=== PATIENT | male | born 1950 | race Caucasian/White ===

== ENCOUNTER 2024-07-06 18:41 | Emergency (ER) | payer MEDICARE ==
[2024-07-06] VITALS (9 sets, daily range): BP systolic 131–150; BP diastolic 91–103
[2024-07-06] MEDS ORDERED: GABAPENTIN 300 MG/CAP PO ONE (19:25)
[2024-07-06] MEDS ORDERED: METOPROLOL TARTRATE 50 MG/TAB PO ONE (19:25)
[2024-07-06] MEDS ORDERED: NEOMYCIN-BACITRACIN-POLYMYXIN 0.5 GM/PAK PAK TOP ONE (19:25)
[2024-07-06] MEDS ORDERED: oxyCODONE HCL 15 MG/TAB PO ONE (19:25)
[2024-07-06] MEDS ORDERED: METOPROLOL TARTRATE 5 MG/5 ML VIAL IV ONE (19:25)
[2024-07-06 19:41] LABS: BASO% 0.7 % (0-3); HEMATOCRIT 48.9 % (39.0-50.0); HEMOGLOBIN 15.8 g/dl (14.0-18.0); IMMATURE GRANULOCYTES 0.3 % (0.0-5.0); MEAN CELL VOLUME 85.8 fL CALC (80.0-100.0); MEAN CORPUSCULAR HGB 27.7 pG CALC (26.0-32.0); MEAN CORPUSCULAR HGB CONC 32.3 g/dL CAL (32.0-36.0); MONO% 8.6 % (2-13); NEUT# 4.51 thou/uL (1.82-7.42); NEUT% 65.4 % (42-76); RED BLOOD COUNT 5.7 mill/uL (4.70-6.10); RED CELL DISTRI WIDTH 14.6 % (11.5-15.5)
[2024-07-06 19:59] LABS: CREATININE 1.1 mg/dL (0.7-1.3); MAGNESIUM 1.9 mg/dL (1.6-2.3); POTASSIUM 4.4 mmol/l (3.5-5.1)
[2024-07-06] MEDS ORDERED: INSULIN REGULAR (HUMAN) 100 UNIT/ML INJ SC ONE (20:05)
[2024-07-06] MEDS ORDERED: OXYCODONE30 MG PO (20:40)
[2024-07-06] MEDS ORDERED: TRESIBA100 UNIT/M SC (20:59)
== END 2024-07-06 20:47 | disposition home or self-care (01) ==
LOC: ED 18:41
PROVIDERS: Family Medicine
DX: E11.42 Type 2 diabetes mellitus with diabetic polyneuropathy (principal); E11.65 Type 2 diabetes mellitus with hyperglycemia; I48.91 Unspecified atrial fibrillation; Z79.4 Long term (current) use of insulin; T50.996A Underdosing of other drugs, medicaments and biological substances, initial encounter; Z91.128 Patient's intentional underdosing of medication regimen for other reason

== ENCOUNTER 2024-11-13 18:02 | Emergency (ER) | payer MEDICARE ==
[2024-11-13] VITALS (10 sets, daily range): BP systolic 102–134; BP diastolic 67–89
[~2024-11-13 18:02] MED LIST: OXYCODONE30 MG PO; TRESIBA100 UNIT/M SC
[2024-11-13] MEDS ORDERED: NALOXONE HCL 0.4 MG/ML 1ML AMP IV ONE (18:10)
[2024-11-13 18:18] LABS: BASO% 0.4 % (0-3); EOS% 3.9 % (0-8); HEMATOCRIT 50.5 % (39.0-50.0); HEMOGLOBIN 15.3 g/dl (14.0-18.0); IMMATURE GRANULOCYTES 0.3 % (0.0-5.0); LYMPH% 26.8 % (15-41); MEAN CELL VOLUME 91.7 fL CALC (80.0-100.0); MEAN CORPUSCULAR HGB 27.8 pG CALC (26.0-32.0); MEAN CORPUSCULAR HGB CONC 30.3 g/dL CAL (32.0-36.0); MONO% 11.8 % (2-13); NEUT# 4.06 thou/uL (1.82-7.42); NEUT% 56.8 % (42-76); RED BLOOD COUNT 5.51 mill/uL (4.70-6.10); RED CELL DISTRI WIDTH 16.4 % (11.5-15.5)
[2024-11-13] MEDS ORDERED: dilTIAZem HCL 50 MG/10 ML SDV IV ONE (18:35)
[2024-11-13 18:36] LABS: ALBUMIN 4.5 g/dL (3.2-5.0); BILIRUBIN, TOTAL 2.5 mg/dL (0.2-1.3); CREATININE 1.5 mg/dL (0.7-1.3); POTASSIUM 4.1 mmol/l (3.5-5.1); TOTAL PROTEIN 8.3 g/dL (6.3-8.2)
[2024-11-13] MEDS ORDERED: SODIUM CHLORIDE 0.9% 1,000 ML IV ONE (18:45)
[2024-11-13] MEDS ORDERED: FUROSEMIDE 40 MG/4 ML SDV IV ONE (19:10)
[2024-11-13] MEDS ORDERED: METOPROLOL TARTRATE 5 MG/5 ML VIAL IV ONE (19:10)
[2024-11-13] MEDS ORDERED: METOPROLOL TARTRATE 25 MG/TAB PO ONE (19:10)
[2024-11-13 20:13] LABS: URINE BILIRUBIN - DIPSTICK Negative (NEGATIVE); URINE BLOOD DIPSTICK Negative (NEGATIVE); URINE COLOR Yellow; URINE GLUCOSE - DIPSTICK Negative (NEGATIVE); URINE KETONE Negative (NEGATIVE); URINE LEUK ESTERASE Negative (NEGATIVE); URINE NITRITE - DIPSTICK Negative (Negative); URINE PH 5.5 (4.5-8.0); URINE PROTEIN - DIPSTICK Negative (NEG-TRACE)
[2024-11-13] MEDS ORDERED: OMEPRAZOLE DR40 MG (20:23)
[2024-11-13] MEDS ORDERED: ALDACTONE25 MG PO (20:23)
[2024-11-13] MEDS ORDERED: TOPROL XL100 MG PO (20:24)
[2024-11-13] MEDS ORDERED: ELIQUIS5 MG PO (20:25)
[2024-11-13] MEDS ORDERED: ATORVASTATIN CA40 MG PO (20:26)
[2024-11-13] MEDS ORDERED: METOLAZONE2.5 MG PO (20:27)
== END 2024-11-13 20:37 | disposition home or self-care (01) ==
LOC: ED 18:02
PROVIDERS: Family Medicine
DX: T40.2X1A Poisoning by other opioids, accidental (unintentional), initial encounter (principal); E87.20 Acidosis, unspecified; I50.9 Heart failure, unspecified; I48.91 Unspecified atrial fibrillation; E11.40 Type 2 diabetes mellitus with diabetic neuropathy, unspecified; E66.9 Obesity, unspecified; Z79.891 Long term (current) use of opiate analgesic; Z79.4 Long term (current) use of insulin
CPT/HCPCS: J1940

== ENCOUNTER 2025-01-03 10:06 | Emergency (ER) | payer MEDICARE ==
[~2025-01-03 10:06] MED LIST changes: +ALDACTONE25 MG PO; +ATORVASTATIN CA40 MG PO; +ELIQUIS5 MG PO; +METOLAZONE2.5 MG PO; +OMEPRAZOLE DR40 MG; +TOPROL XL100 MG PO
== END 2025-01-03 15:30 | disposition left against medical advice (07) ==
LOC: ED 10:06 → LWOBS 10:47
DX: Z53.21 Procedure and treatment not carried out due to patient leaving prior to being seen by health care provider (principal)

== ENCOUNTER 2025-01-16 16:50 | Emergency (ER) | payer OTHER, MEDICARE ==
[~2025-01-16] VITALS: Ht 177.8 cm; Wt 100.0 kg
[2025-01-16] VITALS (23 sets, daily range): BP systolic 107–163; BP diastolic 66–106
[~2025-01-16 16:50] MED LIST changes: +ATORVASTATIN CA20 MG PO; -ATORVASTATIN CA40 MG PO; -OMEPRAZOLE DR40 MG; +OMEPRAZOLE DR40 MG PO; +TRESIBA FL200 UNIT/M SC; -TRESIBA100 UNIT/M SC
[2025-01-16] MEDS ORDERED: ADENOSINE 6MG (3 MG/ML) SYR IV ONE ×2 (16:55→17:00)
[2025-01-16] MEDS ORDERED: SODIUM CHLORIDE 0.9% 1,000 ML IV ONE (17:00)
[2025-01-16] MEDS ORDERED: METOPROLOL TARTRATE 5 MG/5 ML VIAL IV ONE ×3 (17:05→21:45)
[2025-01-16 17:24] LABS: BASO% 0.6 % (0-3); EOS% 0.6 % (0-8); HEMATOCRIT 48.5 % (39.0-50.0); HEMOGLOBIN 15.7 g/dl (14.0-18.0); LYMPH% 24.1 % (15-41); MEAN CELL VOLUME 88.5 fL CALC (80.0-100.0); MEAN CORPUSCULAR HGB 28.6 pG CALC (26.0-32.0); MEAN CORPUSCULAR HGB CONC 32.4 g/dL CAL (32.0-36.0); MONO% 15.1 % (2-13); NEUT# 2.84 thou/uL (1.82-7.42); NEUT% 58.6 % (42-76); RED BLOOD COUNT 5.48 mill/uL (4.70-6.10); RED CELL DISTRI WIDTH 18.6 % (11.5-15.5)
[2025-01-16] MEDS ORDERED: dilTIAZem HCL 50 MG/10 ML SDV IV ONE ×2 (17:25→20:45)
[2025-01-16 17:30] LABS: ALKALINE PHOSPHATASE 91 u/l (38-126); ANION GAP 17 (6-22 (CALC)); BILIRUBIN, TOTAL 2.3 mg/dL (0.2-1.3); BUN 28 mg/dL (8-23); BUN/CREATININE RATIO 23 (12-20 (CALC)); CARBON DIOXIDE 25 mmol/l (22-30); CHLORIDE 97 mmol/l (95-108); CREATININE 1.2 mg/dL (0.7-1.3); ESTIMATED GFR 64 ML/MIN (>=90 (CALC)); ETHYL ALCOHOL 0 mg/dl (0-30); POTASSIUM 3.7 mmol/l (3.5-5.1); SGOT/AST 54 u/l (19-48); SODIUM 136 mmol/l (137-146); TOTAL PROTEIN 7.7 g/dL (6.3-8.2)
[2025-01-16] MEDS ORDERED: SODIUM CHLORIDE 0.9% 250 ML IV PRN (18:10)
[2025-01-16] MEDS ORDERED: DILTIAZEM HCL 125 MG in SODIUM CHLORIDE 0.9% 100 ML IV ONE (18:10)
[2025-01-16] MEDS ORDERED: MORPHINE SULFATE 4 MG/ML VIAL IV ONE (19:20)
[2025-01-16] MEDS ORDERED: ONDANSETRON HCl 4 MG/2 ML SDV IV ONE (20:45)
[2025-01-16] MEDS ORDERED: HYDROmorphone HCL 2 MG/AMP IV ONE (20:45)
[2025-01-16] MEDS ORDERED: METOPROLOL TARTRATE 50 MG/TAB PO ONE (20:45)
[2025-01-16] MEDS ORDERED: MAGNESIUM HYDROXIDE 30 ML UDC PO PRN (23:55)
[2025-01-16] MEDS ORDERED: ACETAMINOPHEN 325 MG/TAB PO PRN (23:55)
[2025-01-16] MEDS ORDERED: METOPROLOL SUCCINATE 100 MG/TAB PO SCH (23:56)
[2025-01-17] MEDS ORDERED: OXYCODONE30 MG PO (08:01)
[2025-01-17] MEDS ORDERED: TIZANIDINE2 MG PO (08:03)
[2025-01-17] MEDS ORDERED: INSULIN GLARGINE 100 UNITS/ML SC SCH (09:00)
[2025-01-17] MEDS ORDERED: APIXABAN BASE 5 MG TAB PO SCH (09:00)
[2025-01-17] MEDS ORDERED: PANTOPRAZOLE SODIUM Sesquihydr 40 MG/TAB PO SCH (09:00)
== END 2025-01-16 22:36 | disposition left against medical advice (07) | DRG 310 ==
LOC: ED 16:50 → ED-I 21:49 → ED 22:36
PROVIDERS: Family Medicine
DX: I48.20 Chronic atrial fibrillation, unspecified (principal); S20.219A Contusion of unspecified front wall of thorax, initial encounter; M54.9 Dorsalgia, unspecified; M54.2 Cervicalgia; I10 Essential (primary) hypertension; E11.40 Type 2 diabetes mellitus with diabetic neuropathy, unspecified; Z79.4 Long term (current) use of insulin; Z79.02 Long term (current) use of antithrombotics/antiplatelets; V49.50XA Passenger injured in collision with unspecified motor vehicles in traffic accident, initial encounter; T45.526A Underdosing of antithrombotic drugs, initial encounter; Z91.128 Patient's intentional underdosing of medication regimen for other reason; Z53.29 Procedure and treatment not carried out because of patient's decision for other reasons
CPT/HCPCS: J1171; J2405; Q9967

== ENCOUNTER 2025-01-17 00:55 | Observation (INO) | payer MEDICARE ==
[~2025-01-17] VITALS: Ht 177.8 cm; Wt 150.0 kg
[2025-01-17] VITALS (22 sets, daily range): BP systolic 90–147; BP diastolic 64–96
--- NOTE | 2025-01-17 01:12 | NUR ---
at bedside. good rise and fall of chest. pt states no complaints of chest or abdominal pain. No complaints of palpitations. IV access gained. Labs sent . at bedside
[2025-01-17] MEDS ORDERED: dilTIAZem HCL 50 MG/10 ML SDV IV ONE (01:20)
[2025-01-17] MEDS ORDERED: ASPIRIN 81 MG/TAB PO ONE (01:20)
[2025-01-17] MEDS ORDERED: DILTIAZEM HCL 125 MG in SODIUM CHLORIDE 0.9% 100 ML IV PRN ×2 (01:20→02:25)
[2025-01-17] MEDS ORDERED: SODIUM CHLORIDE 0.9% 250 ML IV ONE (01:20)
[2025-01-17 01:51] LABS: BILIRUBIN, TOTAL 2.5 mg/dL (0.2-1.3); CREATININE 1.1 mg/dL (0.7-1.3); MAGNESIUM 1.9 mg/dL (1.6-2.3); POTASSIUM 4.2 mmol/l (3.5-5.1); TOTAL PROTEIN 7.6 g/dL (6.3-8.2)
[2025-01-17] MEDS ORDERED: ONDANSETRON HCl 4 MG/2 ML SDV IV PRN (02:20)
[2025-01-17] MEDS ORDERED: FAMOTIDINE 10MG/ML 2ML SDV IV PRN (02:20)
[2025-01-17] MEDS ORDERED: IBUPROFEN 800 MG/TAB PO PRN (02:20)
[2025-01-17] MEDS ORDERED: ONDANSETRON 4 MG/TAB ODT PO PRN (02:20)
[2025-01-17] MEDS ORDERED: Polyethylene Glycol 3350 17 GM/PKT PO PRN (02:20)
[2025-01-17] MEDS ORDERED: ALUM & MAG HYDROX-SIMETHICONE 30 ML PO PRN (02:20)
[2025-01-17] MEDS ORDERED: SODIUM CHLORIDE 0.9% 250 ML IV PRN (02:25)
--- NOTE | 2025-01-17 02:28 | NUR ---
report given to charge. patient appears to be resting at bedside.good rise and fall of chest.
--- NOTE | 2025-01-17 02:29 | NUR ---
report given to charge nurse Lorenza DYER
--- NOTE | 2025-01-17 02:45 | NUR ---
PATIENT STARTED ON CARDIZEM.
--- NOTE | 2025-01-17 03:30 | NUR ---
PATIENT ADMITED TO ICU. PATIENT TO BE A HOLD IN ED 15.
[2025-01-17] MEDS ORDERED: SODIUM CHLORIDE 0.9% 0 ML IV ONE (03:43)
[2025-01-17] MEDS ORDERED: HYDROmorphone HCL 2 MG/AMP IV ONE (05:00)
--- NOTE | 2025-01-17 05:00 | NUR ---
PATIENT ADMITTED TO ICU. PATIENT TO STAY IN ED ROOM 15 AN ICU OVERFLOW. PATIENT CURRENTLY ON CARDIZEM AT 5MG. PATIENT REPORTS HE DOES NOT KNOW IF HE WILL LEAVE THIS AM, OR STAY. PATIENT ORIENTED TO CALL SYSTEM AND ROOM. REMAINS AT BEDSIDE.
--- NOTE | 2025-01-17 06:45 | NUR ---
REPORT GIVEN TO Sindhu HOUGH RN
[2025-01-17] MEDS ORDERED: DEXTROSE 250 ML IV PRN (07:20)
[2025-01-17] MEDS ORDERED: OXYCODONE30 MG PO (08:01)
[2025-01-17] MEDS ORDERED: TIZANIDINE2 MG PO (08:03)
[2025-01-17] MEDS ORDERED: oxyCODONE HCL 15 MG/TAB PO PRN (08:05)
--- NOTE | 2025-01-17 08:38 | NUR ---
PT REPORT RECEIVED, WENT INTO ROOM AND PT STATES I AM WANTING TO LEAVE, THE ONLY REASON I AM HERE IS THAT I COULDNT FIND A HOTEL ROOM LAST NIGHT SO I CAME BACK IN. DENIES ANY PAIN OR CHEST PAIN, STATES HE SEES A ELEVATED MOTORMAN ON A REGULAR BASIS AND AFIB IS A CHRONIC "THING" WITH HIM. STATES HE WOULD LIKE TO SEE DOCTOR THEN SIGN OUT AMA., CARDIZEM WAS DECREASED TO 2.5, WITH HEART RATE FROM 84-120'S..
[2025-01-17] MEDS ORDERED: INSULIN GLARGINE 100 UNITS/ML SC SCH (09:00)
[2025-01-17] MEDS ORDERED: PANTOPRAZOLE SODIUM Sesquihydr 40 MG/TAB PO SCH (09:00)
[2025-01-17] MEDS ORDERED: METOPROLOL SUCCINATE 100 MG/TAB PO SCH (09:00)
[2025-01-17] MEDS ORDERED: APIXABAN BASE 5 MG TAB PO SCH (09:00)
--- NOTE | 2025-01-17 10:13 | NUR ---
PT STATES HE IS WANTING TO SIGN OUT AMA, ADVISED AGAINST SIGNING AMA, HE STATES HE FEELS FINE. STATES HE IS NOT STAYING AND REQUESTING IV OUT
--- NOTE | 2025-01-17 10:18 | NUR ---
MULTIPLE ATTEMPTS MADE TO ENCOURAGE PT TO REMAIN FOR CONTINUATION OF TREATMENT. EXPLAINED TO PT ALL RISKS OF LEAVING AMA INCLUDING . DR. RODRÍGUEZ NOTIFIED. PT DISCUSSING IT AT THIS TIME WITH .
--- NOTE | 2025-01-17 10:39 | NUR ---
PT SIGNED AMA FORM AND BOTH IV'S WERE REMOVED, TOOK PT AND BY W/C TO WAITING ROOM WHERE THEY WERE GOING TO CALL A CAB
[2025-01-17] MEDS ORDERED: ADENOSINE 6MG (3 MG/ML) SYR IV ONE (12:50)
[2025-01-17] MEDS ORDERED: ATORVASTATIN CALCIUM 40 MG/TAB PO SCH (21:00)
== END 2025-01-17 10:30 | disposition left against medical advice (07) ==
LOC: ED 00:55 → ED-I 02:06 → ED 02:20 → ED-I 02:21
PROVIDERS: Internal Medicine; ADMIT Internal Medicine; ATTEND Internal Medicine
DX: I48.91 Unspecified atrial fibrillation (principal); S20.219A Contusion of unspecified front wall of thorax, initial encounter; I11.0 Hypertensive heart disease with heart failure; I50.9 Heart failure, unspecified; E11.40 Type 2 diabetes mellitus with diabetic neuropathy, unspecified; M54.9 Dorsalgia, unspecified; G89.29 Other chronic pain; V49.9XXA Car occupant (driver) (passenger) injured in unspecified traffic accident, initial encounter; Z79.4 Long term (current) use of insulin; Z79.01 Long term (current) use of anticoagulants; Z79.891 Long term (current) use of opiate analgesic
CPT/HCPCS: J1171; J1815

== ENCOUNTER 2025-01-21 13:28 | Inpatient (IN) | payer MEDICARE ==
[2025-01-21] VITALS (86 sets, daily range): BP systolic 93–164; BP diastolic 43–97
[~2025-01-21] VITALS: Ht 177.8 cm; Wt 105.1 kg
[~2025-01-21 13:28] MED LIST changes: +TIZANIDINE2 MG PO
--- NOTE | 2025-01-21 13:28 | NUR ---
PATIENT TO ER ROOM 11 VIA EMS. (SEE TRIAGE)
[2025-01-21] MEDS ORDERED: PIPERACILLIN Sodium-Tazobactam 3.375 GM in SODIUM CHLORIDE 0.9% 100 ML IV ONE (13:40)
[2025-01-21] MEDS ORDERED: FUROSEMIDE 40 MG/4 ML SDV IV ONE (13:40)
--- NOTE | 2025-01-21 13:40 | NUR ---
PT TACHYPNIC, TO BE PLACED ON BIPAP PER MD.
[2025-01-21 14:10] LABS: BASO% 0.3 % (0-3); EOS% 0.2 % (0-8); HEMATOCRIT 52.4 % (39.0-50.0); HEMOGLOBIN 16.9 g/dl (14.0-18.0); IMMATURE GRANULOCYTES 0.3 % (0.0-5.0); LYMPH% 7.3 % (15-41); MEAN CELL VOLUME 88.5 fL CALC (80.0-100.0); MEAN CORPUSCULAR HGB 28.5 pG CALC (26.0-32.0); MEAN CORPUSCULAR HGB CONC 32.3 g/dL CAL (32.0-36.0); MONO% 6.8 % (2-13); NEUT# 9.82 thou/uL (1.82-7.42); NEUT% 85.1 % (42-76); RED BLOOD COUNT 5.92 mill/uL (4.70-6.10); RED CELL DISTRI WIDTH 19.5 % (11.5-15.5)
[2025-01-21] MEDS ORDERED: NITROGLYCERIN IN D5W 250 ML IV ONE (14:20)
[2025-01-21] MEDS ORDERED: SODIUM CHLORIDE 0.9% 250 ML IV PRN ×2 (14:20→17:50)
[2025-01-21 14:21] LABS: ALBUMIN 3.9 g/dL (3.2-5.0); BILIRUBIN, TOTAL 3.1 mg/dL (0.2-1.3); CREATININE 1.2 mg/dL (0.7-1.3); MAGNESIUM 2.2 mg/dL (1.6-2.3); POTASSIUM 3.9 mmol/l (3.5-5.1); TOTAL PROTEIN 7.7 g/dL (6.3-8.2)
[2025-01-21 14:30] LABS: INTERNATIONAL NORMALIZED RATIO 1.5 RATIO (0.7-1.3)
[2025-01-21 14:40] LABS: URINE BLOOD DIPSTICK Moderate (NEGATIVE); URINE GLUCOSE - DIPSTICK 100 mg/dL (NEGATIVE); URINE KETONE 40 mg/dL (NEGATIVE); URINE LEUK ESTERASE Negative (NEGATIVE); URINE NITRITE - DIPSTICK Negative (Negative); URINE PROTEIN - DIPSTICK 100 mg/dL (NEG-TRACE)
--- NOTE | 2025-01-21 14:40 | NUR ---
NITRO DRIP STARTED
[2025-01-21 14:42] LABS: URINE COLOR Yellow
[2025-01-21 14:53] LABS: URINE HYALINE CAST FEW lpf (NONE-RARE); URINE SQUAMOUS EPITHELIAL CELL FEW EPI/hpf (0-FEW); URINE WBC 0-2 WBC/hpf (0-5)
--- NOTE | 2025-01-21 15:25 | NUR ---
1800 ML EMPTIED FROM DINERO
--- NOTE | 2025-01-21 16:04 | NUR ---
PT ON 2L NC AND RECEIVING NITRO DRIP. RESTING AT THIS TIME. VITALS STABLE
--- NOTE | 2025-01-21 17:00 | NUR ---
PT SLEEPING, VOIDED 600 ML. VITALS STABLE, ON NITRO DRIP. O2 D/C'D PER RESPIRATORY
[2025-01-21] MEDS ORDERED: MAGNESIUM HYDROXIDE 30 ML UDC PO PRN (17:10)
[2025-01-21] MEDS ORDERED: ACETAMINOPHEN 325 MG/TAB PO PRN (17:10)
[2025-01-21] MEDS ORDERED: oxyCODONE HCL 15 MG/TAB PO PRN (17:10)
[2025-01-21] MEDS ORDERED: dilTIAZem HCL 50 MG/10 ML SDV IV ONE (17:50)
[2025-01-21] MEDS ORDERED: DILTIAZEM HCL 125 MG in SODIUM CHLORIDE 0.9% 100 ML IV ONE (17:50)
--- NOTE | 2025-01-21 17:50 | NUR ---
PT IN A FIB RVR WITH HR IN 160'S, MDNOTIFIED. ORDER FOR CARIZEM BOLUS AND DRIP PLACED.
--- NOTE | 2025-01-21 18:46 | NUR ---
PT SLEEPING, ON 2L NC. CARDIZEM DRIP AT 5. REPORT GIVEN TO GOMEZ GREGORY
--- NOTE | 2025-01-21 19:00 | NUR ---
REPORT RECEIVED FROM GOMEZ RYAN AT THIS TIME. PT RESTING WITH VS, CARDIZEM GTT IN PLACE, PT ON 2LNC, AWAITING ICU FOR REPORT AND TRANSFER OF PT.
[2025-01-21] MEDS ORDERED: AZITHROMYCIN 500 MG in SODIUM CHLORIDE 0.9% 500 ML IV SCH (20:00)
--- NOTE | 2025-01-21 20:13 | NUR ---
REPORT CALLED TO GOMEZ VORA IN ICU AT THIS TIME.
[2025-01-21] MEDS ORDERED: JARDIANCE10 MG (20:34)
--- NOTE | 2025-01-21 20:40 | NUR ---
PT TO RM #2 ICU AT THIS TIME VIA STRETCHER. NURSE AT BEDSIDE.
[2025-01-21] MEDS ORDERED: METOPROLOL SUCCINATE 100 MG/TAB PO SCH (21:00)
[2025-01-21] MEDS ORDERED: APIXABAN BASE 5 MG TAB PO SCH (21:00)
[2025-01-21] MEDS ORDERED: ATORVASTATIN CALCIUM 40 MG/TAB PO SCH (21:00)
--- NOTE | 2025-01-21 21:37 | NUR ---
PATIENT ARRIVED TO THE UNIT VIA AT 2041 VIA STRETCHER ACCOMPAINED BY JUAREZ GREGORY RN. REPORT RECEIVED. PATIENT ALERT AND ORIENTED TO PERSON AND PLACE ONLY WITH PERIODIC CONFUSION. PATIENT IS REQUESTING THAT HIS , LOCATED IN ICU 7, PROVIDE THIS INSTRUCTOR GROUND SERVICES WITH ALL INFORMATION. CURRENTLY RESTING WITH EYES CLOSED. RISE AND FALL OF CHEST NOTED. C/O PAIN OF A 6, MEDICATED ACCORDING TO EMAR. LUNG CRACKLES/DIMINISHED TO ASCULTATION. BREATHING EVEN AND UNLABORED ON ROOM AIR. UNCONTROLLED AFIB ON THE MONITOR, CARDIZEM GTT AT 15MG/HR. GLU 166. AFEBRILE 96.9. DINERO PATENT AND FLOWING TO GRAVITY WITH 515 mL OF YELLOW URINE NOTED. PATIENT UNSURE OF LBM. BRUISE NOTED TO L THIGHT. BILATERAL LOWER EXT ERYTHEMA/EDEMA 2+ PITTING NOTED. SKIN TEAR TO LFA NOTED. SEE PICTURES IN CHART. PATIENT ORIENTED TO ROOM AND CALL [facility] SYSTEM. SAFETY MEASURES IN PLACE INLCUDING BED LOCKED AND IN LOW POSITION. NO APPARENT DISTRESS AT THIS TIME. WILL INITIATE NURSING PLAN OF CARE.
[2025-01-22] VITALS (51 sets, daily range): BP systolic 84–123; BP diastolic 52–84
--- NOTE | 2025-01-22 00:08 | NUR ---
PATIENT APPEARS TO BE RESTING WITH EYES CLOSED. RISE AND FALL OF CHEST NOTED. WILL CONTINUE WITH PLAN OF CARE.
--- NOTE | 2025-01-22 02:00 | NUR ---
PATIENT APPEARS TO BE RESTING WITH EYES CLOSED. RISE AND FALL OF CHEST NOTED. NO APPARENT DISTRESS. WILL CONTINUE WITH PLAN OF CARE
[2025-01-22] MEDS ORDERED: SODIUM CHLORIDE 0.9% 100 ML IV ONE (03:09)
--- NOTE | 2025-01-22 04:00 | NUR ---
PATIENT APPEARS TO BE RESTING WITH EYES CLOSED. RISE AND FALL OF CHEST NOTED. NO APPARENT DISTRESS. WILL CONTINUE WITH PLAN OF CARE.
[2025-01-22] MEDS ORDERED: DILTIAZEM HCL 125 MG in SODIUM CHLORIDE 0.9% 100 ML IV PRN (04:40)
--- NOTE | 2025-01-22 05:35 | NUR ---
PATIENT LYING IN BED RESTING. PATIENT REQUESTING WATER, REQUEST GRANTED. ALL ADDITIONAL NEEDS MET. NO APPARENT DISTRESS NOTED. WILL CONTINUE WITH PLAN OF CARE.
[2025-01-22 05:53] LABS: HEMATOCRIT 49.9 % (39.0-50.0); HEMOGLOBIN 15.6 g/dl (14.0-18.0); MEAN CELL VOLUME 91.7 fL CALC (80.0-100.0); MEAN CORPUSCULAR HGB 28.7 pG CALC (26.0-32.0); MEAN CORPUSCULAR HGB CONC 31.3 g/dL CAL (32.0-36.0); RED BLOOD COUNT 5.44 mill/uL (4.70-6.10); RED CELL DISTRI WIDTH 19.5 % (11.5-15.5)
[2025-01-22 06:01] LABS: ALBUMIN 3.4 g/dL (3.2-5.0); BILIRUBIN, TOTAL 2.6 mg/dL (0.2-1.3); CREATININE 1.1 mg/dL (0.7-1.3); MAGNESIUM 2.1 mg/dL (1.6-2.3); POTASSIUM 3.9 mmol/l (3.5-5.1); TOTAL PROTEIN 7.1 g/dL (6.3-8.2)
--- NOTE | 2025-01-22 08:00 | NUR ---
REPORT RECEIVED FROM NIGHT NURSE. PT IS A/O TO PPT. ADMITTED WITH PNA AND CHF EXACERBATION. THIS MORNING PT IS ON 4LNC. NO COUGH OR SOB NOTED. LUNG SOUNDS CLEAR. HEART SOUNDS S1S2; PT IS AFIB RVR ON MONITOR; ON CARDIZEM GTT. BS ACTIVE; ABDOMEN SOFT, NON-TENDER. PULSES WEAK ALL EXTREMETIES. +2 EDEMA BILATERAL LOWER EXTREMETIES. SMALL SKIN TEAR PRESENT ON ADMISSION ON L ARM. LOWER LEGS DISCOLORED, PURPLISH IN COLOR; PT DENIES ANY SENSITIVITY OR LACK OF SENSATION IN THOSE AREAS. PT HAS DINERO CATHETER IN PLACE. AFEBRILE. EATING BREAKFAST IN BED. DENIES ANY PAIN OR NEEDS AT THIS TIME. CALL LIGHT IN REACH, VSS.
[2025-01-22] MEDS ORDERED: PANTOPRAZOLE SODIUM Sesquihydr 40 MG/TAB PO SCH (09:00)
[2025-01-22] MEDS ORDERED: INSULIN GLARGINE 100 UNITS/ML SC SCH (09:00)
[2025-01-22] MEDS ORDERED: FUROSEMIDE 40 MG/4 ML SDV IV SCH (09:00)
--- NOTE | 2025-01-22 09:05 | NUR ---
PT'S PULSE OX CHANGED LOCATIONS AND ABLE TO TITRATE OXYGEN OFF. CURRETN O2SAT >90% ON RA.
[2025-01-22] MEDS ORDERED: [UNRECOGNIZED DRUG - OTHER] SC (09:58)
[2025-01-22] MEDS ORDERED: GABAPENTIN800 MG PO (10:02)
[2025-01-22] MEDS ORDERED: AMOXICILLIN500 M2 PO (10:03)
[2025-01-22] MEDS ORDERED: MOUNJARO5 M1 SC (10:09)
[2025-01-22] MEDS ORDERED: LASIX 40 MG TAB40 MG PO (10:16)
[2025-01-22] MEDS ORDERED: CORDARONE/200 MG/TAB PO (10:17)
[2025-01-22] MEDS ORDERED: FARXIGA10 MG PO (10:17)
--- NOTE | 2025-01-22 10:57 | NUR ---
NO CHANGES TO PT STATUS. ASLEEP IN BED. REMAINS ON CARDZEM GTT AT 15.
[2025-01-22] MEDS ORDERED: DEXTROSE 250 ML IV PRN (12:15)
[2025-01-22] MEDS ORDERED: DEXTROSE 50% 50 ML/SYR IV PRN (12:15)
--- NOTE | 2025-01-22 12:30 | NUR ---
NO CHANGES TO PT STATUS. ASLEEP IN BED. DID NOT WANT TO EAT LUNCH AT THIS TIME. REMAINS AFIB, ON CARDIZEM GTT AT 15. CALL LIGHT IN REACH. VSS.
--- NOTE | 2025-01-22 14:08 | NUR ---
NO CHANGES TO PT STATUS. REMAINS ON CARDIZEM GTT BUT RATE IMPROVED. ASLEEP IN BED. CALL LIGHT IN REACH.
--- NOTE | 2025-01-22 16:00 | NUR ---
NO CHANGES TO PT STATUS. LYING IN BED. CALL LIGHT IN REACH. VSS.
[2025-01-22] MEDS ORDERED: INSULIN LISPRO 100 UNITS/ML ML SC SCH (17:00)
--- NOTE | 2025-01-22 18:00 | NUR ---
NO CHANGES TO PT STATUS. PT ATE DINNER IN BED. REMAINS AFIB, RATE IMPROVED. STILL ON CARDIZEM GTT. DENIES ANY NEEDS AT THIS TIME. CALL LIGHT IN REACH.
[2025-01-22] MEDS ORDERED: AMIODARONE 200 MG/TAB PO SCH (19:10)
--- NOTE | 2025-01-22 19:30 | NUR ---
RECD PT FROM DAY SHIFT RN VIA BSSR. PT AAO X4 PRIMARLY BEDBOUND OR NONAMBULATORY WITH SIGNIFICANT EDEMA TO BLE CURRENTLY DIURESING WITH DIURETICS PER MD. DENIES SOB, PAIN OR CP AT THIS TIME. NO COMPLAINTS. ABLE TO MAKE NEEDS KNOWN. EDUCATED ON FALL PRECAUTIONS - DEMONSTRATED UNDERSTANDING OF CALL LIGHT USE. RESTING WELL AT THIS TIME WITH NO CONCERNS, CALL LIGHT IN REACH
[2025-01-22] MEDS ORDERED: AZITHROMYCIN 500 MG in SODIUM CHLORIDE 0.9% 500 ML IV SCH (20:00)
[2025-01-22] MEDS ORDERED: AZITHROMYCIN 500 MG in SODIUM CHLORIDE 0.9% 250 ML IV SCH (20:00)
[2025-01-22] MEDS ORDERED: GABAPENTIN 300 MG/CAP PO SCH (21:00)
[2025-01-22] MEDS ORDERED: GABAPENTIN 100 MG/CAP PO SCH (21:00)
--- NOTE | 2025-01-22 23:00 | NUR ---
PT GIVEN 1 SMALL CUP COFFEE AND EDUCATED ON FLUID RESTRICTIONS/LIMITATION R/T FVO WITH CHF EXACERB AND RESPIRATORY ISSUES PT HAS EXPERIENCED. PT CONSUMES EXCESSIVE AMOUNTS OF FLUIDS PER SUPERVISOR PRE WAVE LAST NIGHT, DAY SHIFT TODAY - EDUCATION PROVIDED. PT AGREEABLE AND UNDERSTANDING THAT THIS WILL BE THE LAST FLUID FOR THE 24 HOUR PERIOD SO NURSING CAN PROPERLY SUPPORT OFFLOADING OF FLUID WITHOUT MORE AGGRESSIVE MEASURES NEEDING INITIATED.DENIES PAIN, SOB OR CP. REMAINS ON CARDIZEM AT 5 WITH AMIODARONE PO BEGINNING TONIGHT. WILL ATTEMPT TO DISCONTINUE GTT IF PT HR TOLERATES AND AMIO IS REFLECTING THERAPEUTIC. PT REMAINS STABLE AT THIS TIME WITH NO COMPLAINTS RESTING WELL WITH CALL LIGHT WITHIN REACH
[2025-01-23] VITALS (25 sets, daily range): BP systolic 93–130; BP diastolic 53–94
--- NOTE | 2025-01-23 00:32 | NUR ---
PT OBSERVED RESTING COMFORTABLY, NO SIGN OF DISTRESS. VSS. CALL LIGHT WITHIN REACH, FALL PRECAUTIONS IN PLACE.
--- NOTE | 2025-01-23 03:55 | NUR ---
PERSISTENT DESATURATIONS WITH ADEQUATE WAVEFORMS; PLACED ON 2LNC FOR SUPPORT, MAINTAINING SAT>90. DENIES SOB, CP OR PAIN. CALL LIGHT WITHIN REACH
--- NOTE | 2025-01-23 04:00 | NUR ---
CARDIZEM GTT SUSPENDED AT 0400AM FOR HEART RATE MAINTAINING BETWEEN 80-99BPM WITH INCREASES NO HIGHER THAN 105. PO AMIODARONE STARTED AT BEGINNING OF SHIFT. BP MILDLY LOW, ASYMPTOMATIC. TRIAL DISCONTINUATION OF CARDIZEM INITIATED AT 0400. PT STABLE AT THIS TIME, NO COMPLAINTS. DENIES ANY DISCOMFORT OR DISTRESS, RESTING CALMLY WITH CALL LIGHT WITHIN REACH
--- NOTE | 2025-01-23 05:04 | NUR ---
PT REMAINS STABLE WITH NO SIGN OF DISTRESS CALL LIGHT WITHIN REACH
[2025-01-23 05:48] LABS: HEMATOCRIT 48.7 % (39.0-50.0); HEMOGLOBIN 15.2 g/dl (14.0-18.0); MEAN CELL VOLUME 91.5 fL CALC (80.0-100.0); MEAN CORPUSCULAR HGB 28.6 pG CALC (26.0-32.0); MEAN CORPUSCULAR HGB CONC 31.2 g/dL CAL (32.0-36.0); RED BLOOD COUNT 5.32 mill/uL (4.70-6.10); RED CELL DISTRI WIDTH 19.5 % (11.5-15.5)
[2025-01-23 05:58] LABS: ALBUMIN 3.1 g/dL (3.2-5.0); CREATININE 1.3 mg/dL (0.7-1.3); MAGNESIUM 2.1 mg/dL (1.6-2.3); POTASSIUM 3.5 mmol/l (3.5-5.1); TOTAL PROTEIN 6.5 g/dL (6.3-8.2)
--- NOTE | 2025-01-23 06:05 | NUR ---
CARDIZEM REMAINS OFF. MD SAVAGEIFELuz Marina. PT MAINTAINING HR 80-105 MAX NONSUSTAINING > 100.
--- NOTE | 2025-01-23 07:19 | NUR ---
PT REPORT RECEIVED FROM FAMILY SOCIOLOGIST,PT ALERT/ORIENTED X3, SITTING UP IN BED WATCHING TV, DENIES ANY COMPLAINT AT THIS TIME. AFIB ON MONITER, VITAL SIGNS STABLE.
[2025-01-23] MEDS ORDERED: INFLUENZA VIRUS VACCINE FLUZONE HD 2024/25 0.5 ML INJ IM SCH ×2 (09:00→14:00)
--- NOTE | 2025-01-23 11:41 | NUR ---
SITTING UP IN BED, WITH FROM ICU 7 IN W/C NEXT TO HIM. LAUGHING AND JOKING WITH , VITAL SIGNS STABLE.
--- NOTE | 2025-01-23 16:00 | NUR ---
PT SITTING UP IN BEDSIDE CHAIR WITH FROM ICU 7 IN WHEELCHAIR IN ROOM WITH HIM. PT SHOWS NO S/S OF DISTRESS AT THIS TIME. RESP EVEN AND UNLABORED. NC O2 2L IN PLACE. SAFETY PRECAUTIONS IN PLACE. PT REMINDED TO CALL FOR ASSISTANCE. CALL [facility]AN WITHIN REACH.
--- NOTE | 2025-01-23 19:15 | NUR ---
awake. denies distress. o2 cont per nc. no resp diff. has loose nonprod cough. lunchroom monitor shows a fib pvcs. ivf infusing per rac site. kwon cath in place. urine clear yellow. fall precautions cont.
[2025-01-23] MEDS ORDERED: DOXYCYCLINE HYCLATE 100 MG in SODIUM CHLORIDE 0.9% 100 ML IV SCH (22:00)
--- NOTE | 2025-01-23 22:00 | NUR ---
eyes closed. no distress.
[2025-01-24] VITALS (12 sets, daily range): BP systolic 104–121; BP diastolic 64–89
--- NOTE | 2025-01-24 00:05 | NUR ---
c/o pain. medicated as requested.
--- NOTE | 2025-01-24 02:00 | NUR ---
eyes closed. no apparent distress. patient monitor shows a fib pvcs.
--- NOTE | 2025-01-24 05:15 | NUR ---
lab here. blood drawn.
[2025-01-24 05:48] LABS: HEMATOCRIT 47.3 % (39.0-50.0); HEMOGLOBIN 15.2 g/dl (14.0-18.0); MEAN CELL VOLUME 89.9 fL CALC (80.0-100.0); MEAN CORPUSCULAR HGB 28.9 pG CALC (26.0-32.0); MEAN CORPUSCULAR HGB CONC 32.1 g/dL CAL (32.0-36.0); RED BLOOD COUNT 5.26 mill/uL (4.70-6.10); RED CELL DISTRI WIDTH 19.4 % (11.5-15.5)
[2025-01-24 06:07] LABS: ALBUMIN 3.1 g/dL (3.2-5.0); BILIRUBIN, TOTAL 1.4 mg/dL (0.2-1.3); CREATININE 1.2 mg/dL (0.7-1.3); POTASSIUM 3.4 mmol/l (3.5-5.1); TOTAL PROTEIN 6.6 g/dL (6.3-8.2)
--- NOTE | 2025-01-24 06:49 | NUR ---
PT ON 5L NC. O2 SAT 92%.
[2025-01-24] MEDS ORDERED: POTASSIUM CHLORIDE 20 MEQ/TAB PO SCH (07:30)
[2025-01-24] MEDS ORDERED: AMOX/K CLAV875 M1 PO (08:12)
--- NOTE | 2025-01-24 08:16 | NUR ---
PATIENT REPORT RECEIVED FROM COTTON CLEANER. PT RESTING IN BED. NO COMPLAINTS OF PAIN. VITAL SIGNS STABLE. PATIENTS BED IS IN LOWEST POSITION. IV SIGHT HEALTHY AND INTACT. PATIENT SEEMS TO BE A&OX4. PATIENT IS REQUESTING TO GO HOME.
[2025-01-24] MEDS ORDERED: DOXYCYCLINE HYCLATE 100 MG in SODIUM CHLORIDE 0.9% 100 ML IV SCH (10:00)
--- NOTE | 2025-01-24 10:15 | NUR ---
iv x2 d/c'd, pt discharge instruction given with printed rx of amoxicillin., pt voices understanding.
--- NOTE | 2025-01-24 10:29 | NUR ---
gave report to corwin at rehab, pts iv's d/c, at bedside
--- NOTE | 2025-01-24 11:28 | NUR ---
was going to discharge pt with medical transport instead of taxi, but pt states he can walk from [facility] to taxi, pt got up slowly and was able to get from bed to w/c with minimal assistance. pt states he walks at home but does so slowly. called for taxi and pt and his was taken [facility]
== END 2025-01-24 11:40 | disposition home health service (06) | DRG 291 ==
LOC: ED 13:28 → ED-I 13:42 → ED 13:42 → ICU 16:52
PROVIDERS: Family Medicine; ADMIT Internal Medicine; ATTEND Internal Medicine
PROC: 5A09357 Assistance with Respiratory Ventilation, Less than 24 Consecutive Hours, Continuous Positive Airway Pressure (ICD-10-PCS; principal; 2025-01-21)
PROC: 0T9B70Z Drainage of Bladder with Drainage Device, Via Natural or Artificial Opening (ICD-10-PCS; 2025-01-21)
PROC: 3E02340 Introduction of Influenza Vaccine into Muscle, Percutaneous Approach (ICD-10-PCS; 2025-01-23)
DX: I11.0 Hypertensive heart disease with heart failure (principal); J18.9 Pneumonia, unspecified organism; J96.01 Acute respiratory failure with hypoxia; G93.40 Encephalopathy, unspecified; I50.9 Heart failure, unspecified; I48.91 Unspecified atrial fibrillation; E11.40 Type 2 diabetes mellitus with diabetic neuropathy, unspecified; I87.8 Other specified disorders of veins; Z79.4 Long term (current) use of insulin; Z20.822 Contact with and (suspected) exposure to COVID-19; Z23 Encounter for immunization
CPT/HCPCS: 90662; J0456; J0696; J1815; J1940; J2305; J2543; Q9967

== ENCOUNTER 2025-01-27 14:01 | Emergency (ER) | payer OTHER, MEDICARE ==
[~2025-01-27] VITALS: Ht 177.8 cm; Wt 104.0 kg
[2025-01-27] VITALS (9 sets, daily range): BP systolic 88–127; BP diastolic 48–72
[~2025-01-27 14:01] MED LIST changes: +AMOX/K CLAV875 M1 PO; +AMOXICILLIN500 M2 PO; +CORDARONE/200 MG/TAB PO; +FARXIGA10 MG PO; +GABAPENTIN800 MG PO; +JARDIANCE10 MG; +LASIX 40 MG TAB40 MG PO; +MOUNJARO5 M1 SC; +[UNRECOGNIZED DRUG - OTHER] SC
[2025-01-27] MEDS ORDERED: ASPIRIN 81 MG/TAB PO ONE (14:35)
[2025-01-27] MEDS ORDERED: HYDROcodone 5 MG/Acetaminophen 325 MG/COMBO PO ONE (14:35)
[2025-01-27 14:51] LABS: BASO% 0.5 % (0-3); HEMATOCRIT 48.2 % (39.0-50.0); HEMOGLOBIN 15.6 g/dl (14.0-18.0); IMMATURE GRANULOCYTES 0.4 % (0.0-5.0); LYMPH% 15.9 % (15-41); MEAN CELL VOLUME 88.8 fL CALC (80.0-100.0); MEAN CORPUSCULAR HGB 28.7 pG CALC (26.0-32.0); MEAN CORPUSCULAR HGB CONC 32.4 g/dL CAL (32.0-36.0); MONO% 13.8 % (2-13); NEUT# 6.32 thou/uL (1.82-7.42); NEUT% 67.4 % (42-76); RED BLOOD COUNT 5.43 mill/uL (4.70-6.10); RED CELL DISTRI WIDTH 19.6 % (11.5-15.5)
[2025-01-27] MEDS ORDERED: dilTIAZem HCL 50 MG/10 ML SDV IV ONE (14:55)
[2025-01-27] MEDS ORDERED: SODIUM CHLORIDE 0.9% 250 ML IV PRN (14:55)
[2025-01-27] MEDS ORDERED: DILTIAZEM HCL 125 MG in SODIUM CHLORIDE 0.9% 100 ML IV ONE (14:55)
[2025-01-27 15:15] LABS: ALKALINE PHOSPHATASE 95 u/l (38-126); ANION GAP 10 (6-22 (CALC)); BILIRUBIN, TOTAL 2.2 mg/dL (0.2-1.3); BUN 51 mg/dL (8-23); BUN/CREATININE RATIO 26 (12-20 (CALC)); CARBON DIOXIDE 32 mmol/l (22-30); CHLORIDE 100 mmol/l (95-108); CREATININE 1.9 mg/dL (0.7-1.3); ESTIMATED GFR 37 ML/MIN (>=90 (CALC)); POTASSIUM 3.6 mmol/l (3.5-5.1); SGOT/AST 144 u/l (19-48); SODIUM 138 mmol/l (137-146); TOTAL PROTEIN 8.1 g/dL (6.3-8.2)
[2025-01-27] MEDS ORDERED: ZPAK PO (16:10)
[2025-01-27] MEDS ORDERED: AMOX/K CLAV875 M1 PO (16:10)
== END 2025-01-27 16:42 | disposition left against medical advice (07) | DRG 308 ==
LOC: ED 14:01
PROVIDERS: Family Medicine
DX: I48.20 Chronic atrial fibrillation, unspecified (principal); J18.9 Pneumonia, unspecified organism; R07.9 Chest pain, unspecified; Z53.21 Procedure and treatment not carried out due to patient leaving prior to being seen by health care provider